=== PATIENT | female | born 1995 | race Caucasian/White ===

== ENCOUNTER 2017-08-11 20:57 | Emergency (ER) | payer SELFPAY ==
[~2017-08-11] VITALS: Ht 160 cm; Wt 54.0 kg
[~2017-08-11 20:57] MED LIST: AMOXICILLIN500 MG PO; BACTRIM DS1 TAB PO; NO; ZITHROMAX250 MG PO; [UNRECOGNIZED DRUG - OTHER] OP
[2017-08-11 21:46] LABS: URINE BILIRUBIN - DIPSTICK NEGATIVE (NEGATIVE); URINE BLOOD DIPSTICK NEGATIVE (NEGATIVE); URINE COLOR YELLOW; URINE GLUCOSE - DIPSTICK NEGATIVE (NEGATIVE); URINE KETONE NEGATIVE (NEGATIVE); URINE LEUK ESTERASE NEGATIVE (NEGATIVE); URINE PH 6.5 (4.5-8.0); URINE PROTEIN - DIPSTICK NEGATIVE (NEG-TRACE); URINE SPECIFIC GRAVITY 1.025; URINE UROBILINOGEN - DIPSTICK 0.2 E.U./dL (0.2)
[2017-08-11 21:49] LABS: URINE CLARITY CLEAR; URINE NITRITE - DIPSTICK POSITIVE (Negative)
[2017-08-11] MEDS ORDERED: GENTAMICIN15 ML/BTL OS (21:54)
[2017-08-11] MEDS ORDERED: (None)3.5 GM OS (21:54)
[2017-08-11 21:56] LABS: URINE BACTERIA RARE hpf; URINE SQUAMOUS EPITHELIAL CELL FEW EPI/hpf (0-FEW)
[2017-08-11 22:10] VITALS: BP 108/65
== END 2017-08-11 22:11 | disposition home or self-care (01) | DRG 125 ==
LOC: ED 20:57
PROVIDERS: Emergency Medicine
DX: H10.9 Unspecified conjunctivitis (principal)

== ENCOUNTER 2020-01-20 21:01 | Emergency (ER) | payer SELFPAY ==
[~2020-01-20] VITALS: Ht 160 cm; Wt 65.0 kg
[~2020-01-20 21:01] MED LIST changes: +(None)3.5 GM OS; +GENTAMICIN15 ML/BTL OS
[2020-01-20 21:37] LABS: URINE BILIRUBIN - DIPSTICK NEGATIVE (NEGATIVE); URINE BLOOD DIPSTICK TRACE-INTACT (NEGATIVE); URINE COLOR YELLOW; URINE GLUCOSE - DIPSTICK NEGATIVE (NEGATIVE); URINE KETONE NEGATIVE (NEGATIVE); URINE LEUK ESTERASE SMALL (NEGATIVE); URINE NITRITE - DIPSTICK NEGATIVE (Negative); URINE PH 5.5 (4.5-8.0); URINE PROTEIN - DIPSTICK NEGATIVE (NEG-TRACE); URINE SPECIFIC GRAVITY >=1.030; URINE UROBILINOGEN - DIPSTICK 0.2 E.U./dL (0.2)
[2020-01-20 21:39] LABS: URINE BACTERIA FEW hpf; URINE EPITHELIAL CELLS MANY EPI/hpf (0-FEW); URINE RBC 0-2 RBC/hpf (0-5)
[2020-01-20 21:42] LABS: HEMATOCRIT 36.2 % (37.0-47.0); IMMATURE GRANULOCYTES 0.3 % (0.0-5.0); MEAN CELL VOLUME 92.8 fL CALC (80.0-100.0); MEAN CORPUSCULAR HGB 30.8 pG CALC (26.0-32.0); MEAN CORPUSCULAR HGB CONC 33.1 g/dL CAL (32.0-36.0); NEUT# 9.72 thou/uL (2.00-7.15); RED BLOOD COUNT 3.9 mill/uL (4.20-5.60); RED CELL DISTRI WIDTH 11.5 % (11.5-15.5)
[2020-01-20 21:51] LABS: ALBUMIN 4.2 g/dL (3.2-5.0); ALKALINE PHOSPHATASE 57 u/l (38-126); AMYLASE 64 u/l (30-110); ANION GAP 11 (6-22 (CALC)); BILIRUBIN, TOTAL 0.4 mg/dL (0.0-1.4); BUN 6 mg/dL (7-17); BUN/CREATININE RATIO 8 (12-20 (CALC)); CARBON DIOXIDE 25 mmol/l (22-30); CHLORIDE 108 mmol/l (95-108); CREATININE 0.7 mg/dL (0.5-1.0); GFR > 60 ML/MIN (>=60 (CALC)); GFR FOR AFR.AMER. > 60 ML/MIN (>=60 (CALC)); POTASSIUM 3.5 mmol/l (3.5-5.1); SGOT/AST 25 u/l (14-36); SODIUM 142 mmol/l (137-146); TOTAL PROTEIN 7.1 g/dL (6.3-8.2)
[2020-01-20] MEDS ORDERED: BACTRIM DS1 TAB PO (22:03)
[2020-01-20 22:14] VITALS: BP 115/65
== END 2020-01-20 22:14 | disposition home or self-care (01) | DRG 690 ==
LOC: ED 21:01
PROVIDERS: Emergency Medicine
DX: N39.0 Urinary tract infection, site not specified (principal); F17.200 Nicotine dependence, unspecified, uncomplicated

== ENCOUNTER 2021-05-28 16:03 | Emergency (ER) | payer SELFPAY ==
[~2021-05-28] VITALS: Ht 160 cm; Wt 70.5 kg
[2021-05-28 16:24] VITALS: BP 121/72
[2021-05-28 17:16] LABS: HEMATOCRIT 39.8 % (37.0-47.0); HEMOGLOBIN 13.3 g/dl (12.0-16.0); IMMATURE GRANULOCYTES 0.1 % (0.0-5.0); MEAN CELL VOLUME 92.8 fL CALC (80.0-100.0); MEAN CORPUSCULAR HGB CONC 33.4 g/dL CAL (32.0-36.0); NEUT# 5.91 thou/uL (2.00-7.15); RED BLOOD COUNT 4.29 mill/uL (4.20-5.60); RED CELL DISTRI WIDTH 11.7 % (11.5-15.5)
[2021-05-28 17:23] LABS: URINE BILIRUBIN - DIPSTICK NEGATIVE (NEGATIVE); URINE BLOOD DIPSTICK TRACE-LYSED (NEGATIVE); URINE COLOR YELLOW; URINE GLUCOSE - DIPSTICK NEGATIVE (NEGATIVE); URINE KETONE NEGATIVE (NEGATIVE); URINE LEUK ESTERASE NEGATIVE (NEGATIVE); URINE PH 6.5 (4.5-8.0); URINE PROTEIN - DIPSTICK NEGATIVE (NEG-TRACE); URINE SPECIFIC GRAVITY 1.015; URINE UROBILINOGEN - DIPSTICK 0.2 E.U./dL (0.2)
[2021-05-28 17:24] LABS: URINE NITRITE - DIPSTICK NEGATIVE (Negative)
[2021-05-28 17:38] LABS: ALBUMIN 4.7 g/dL (3.2-5.0); ALKALINE PHOSPHATASE 68 u/l (38-126); ANION GAP 12 (6-22 (CALC)); BILIRUBIN, TOTAL 0.3 mg/dL (0.0-1.4); BUN 8 mg/dL (7-17); BUN/CREATININE RATIO 11 (12-20 (CALC)); CARBON DIOXIDE 28 mmol/l (22-30); CHLORIDE 102 mmol/l (95-108); CREATININE 0.7 mg/dL (0.5-1.0); GFR > 60 ML/MIN (>=60 (CALC)); GFR FOR AFR.AMER. > 60 ML/MIN (>=60 (CALC)); LIPASE 40 u/l (23-300); POTASSIUM 3.7 mmol/l (3.5-5.1); SGOT/AST 28 u/l (14-36); SODIUM 139 mmol/l (137-146)
[2021-05-28 18:33] VITALS: BP 115/77
[2021-05-28] MEDS ORDERED: PROTONIX40 M2 PO (18:55)
[2021-05-28] MEDS ORDERED: ZOFRAN4 MG/TAB PO (18:55)
[2021-05-28 19:36] VITALS: BP 115/77
== END 2021-05-28 19:38 | disposition home or self-care (01) | DRG 392 ==
LOC: ED 16:03
PROVIDERS: Family Medicine
DX: R10.13 Epigastric pain (principal); K21.9 Gastro-esophageal reflux disease without esophagitis; F17.290 Nicotine dependence, other tobacco product, uncomplicated

== ENCOUNTER 2021-05-30 08:06 | Emergency (ER) | payer SELFPAY ==
[~2021-05-30] VITALS: Ht 160 cm; Wt 70.5 kg
[2021-05-30] VITALS (7 sets, daily range): BP systolic 95–125; BP diastolic 55–89
[~2021-05-30 08:06] MED LIST changes: +PROTONIX40 M2 PO; +ZOFRAN4 MG/TAB PO
[2021-05-30 08:45] LABS: HEMATOCRIT 40.8 % (37.0-47.0); HEMOGLOBIN 13.4 g/dl (12.0-16.0); IMMATURE GRANULOCYTES 0.1 % (0.0-5.0); MEAN CELL VOLUME 94.7 fL CALC (80.0-100.0); MEAN CORPUSCULAR HGB 31.1 pG CALC (26.0-32.0); MEAN CORPUSCULAR HGB CONC 32.8 g/dL CAL (32.0-36.0); NEUT# 5.85 thou/uL (2.00-7.15); RED BLOOD COUNT 4.31 mill/uL (4.20-5.60); RED CELL DISTRI WIDTH 11.6 % (11.5-15.5)
[2021-05-30 09:13] LABS: ALBUMIN 4.3 g/dL (3.2-5.0); ALKALINE PHOSPHATASE 60 u/l (38-126); AMYLASE 59 u/l (30-110); ANION GAP 11 (6-22 (CALC)); BILIRUBIN, TOTAL 0.3 mg/dL (0.0-1.4); BUN 11 mg/dL (7-17); BUN/CREATININE RATIO 15 (12-20 (CALC)); CARBON DIOXIDE 25 mmol/l (22-30); CHLORIDE 106 mmol/l (95-108); CREATININE 0.7 mg/dL (0.5-1.0); GFR > 60 ML/MIN (>=60 (CALC)); GFR FOR AFR.AMER. > 60 ML/MIN (>=60 (CALC)); LIPASE 43 u/l (23-300); POTASSIUM 3.9 mmol/l (3.5-5.1); SGOT/AST 24 u/l (14-36); SODIUM 138 mmol/l (137-146); TOTAL PROTEIN 7.4 g/dL (6.3-8.2)
[2021-05-30] MEDS ORDERED: ZOFRAN4 MG/TAB PO (10:29)
[2021-05-30] MEDS ORDERED: PROTONIX40 M2 PO (10:29)
== END 2021-05-30 10:59 | disposition home or self-care (01) | DRG 392 ==
LOC: ED 08:06
DX: R10.13 Epigastric pain (principal); K21.9 Gastro-esophageal reflux disease without esophagitis; F17.290 Nicotine dependence, other tobacco product, uncomplicated; F12.90 Cannabis use, unspecified, uncomplicated
CPT/HCPCS: S0164

== ENCOUNTER 2022-01-23 02:56 | Observation (INO) | payer OTHER ==
[2022-01-23] VITALS (10 sets, daily range): BP systolic 97–124; BP diastolic 59–84
[~2022-01-23] VITALS: Ht 160 cm; Wt 68.0 kg
[2022-01-23 03:49] LABS: URINE BILIRUBIN - DIPSTICK NEGATIVE (NEGATIVE); URINE BLOOD DIPSTICK NEGATIVE (NEGATIVE); URINE COLOR YELLOW; URINE GLUCOSE - DIPSTICK NEGATIVE (NEGATIVE); URINE KETONE NEGATIVE (NEGATIVE); URINE LEUK ESTERASE NEGATIVE (NEGATIVE); URINE NITRITE - DIPSTICK NEGATIVE (Negative); URINE PH 7.5 (4.5-8.0); URINE PROTEIN - DIPSTICK NEGATIVE (NEG-TRACE); URINE UROBILINOGEN - DIPSTICK 0.2 E.U./dL (0.2)
[2022-01-23 04:08] LABS: HEMATOCRIT 35.5 % (37.0-47.0); HEMOGLOBIN 12.1 g/dl (12.0-16.0); IMMATURE GRANULOCYTES 0.4 % (0.0-5.0); MEAN CELL VOLUME 91.3 fL CALC (80.0-100.0); MEAN CORPUSCULAR HGB 31.1 pG CALC (26.0-32.0); MEAN CORPUSCULAR HGB CONC 34.1 g/dL CAL (32.0-36.0); NEUT# 13.5 thou/uL (2.00-7.15); RED BLOOD COUNT 3.89 mill/uL (4.20-5.60); RED CELL DISTRI WIDTH 11.5 % (11.5-15.5)
[2022-01-23 04:20] LABS: ALBUMIN 4.2 g/dL (3.2-5.0); ALKALINE PHOSPHATASE 70 u/l (38-126); ANION GAP 12 (6-22 (CALC)); BILIRUBIN, TOTAL 0.2 mg/dL (0.0-1.4); BUN 7 mg/dL (7-17); BUN/CREATININE RATIO 11 (12-20 (CALC)); CARBON DIOXIDE 25 mmol/l (22-30); CHLORIDE 107 mmol/l (95-108); CREATININE 0.7 mg/dL (0.5-1.0); GFR FOR AFR.AMER. > 60 ML/MIN (>=60 (CALC)); GFR OTHER RACES > 60 ML/MIN (>=60 (CALC)); LIPASE 28 u/l (23-300); POTASSIUM 3.7 mmol/l (3.5-5.1); SGOT/AST 30 u/l (14-36); SODIUM 140 mmol/l (137-146); TOTAL PROTEIN 6.8 g/dL (6.3-8.2)
--- NOTE | 2022-01-23 05:57 | NUR ---
PT UPDATED ON PLAN OF CARE, PT VERBALIZED UNDERSTANDING. PT IN NAD, A&OX4, VSS.
--- NOTE | 2022-01-23 06:24 | NUR ---
REPORT GIVEN TO JOSE RN, PT TRANSFERRED WITH FAMILY MEMBER AT BEDSIDE. PT IN NAD, A&OX4, VSS. PT UPDATED ON PLAN OF CARE.
--- NOTE | 2022-01-23 06:30 | NUR ---
PATIENT ADMITTED FROM ER VIA WHEELCHAIR WITH ER STAFF IN ATTENDANCE. PATIENT IS AMBULATORY TO THE BED. FAMILY MENBER AT BEDSIDE. ALERT AND ORIENTEDX3-ADMITTED FOR ACUTE APPY. NPO AT THIS TIME. IV SITE TO LAC-SITE IS HEALTHY WITH GOOD BLOOD RETURN. LEVAQUIN INFUSING ORDERED. ORIENTED TO ROOM AND SURROUNDINGS. INSTRUCTED ON USE OF CALL LIGHT SYSTEM AND TV REMOTE. SAFETY PRECAUTIONS REINFORCED. CALL LIGHT IN REACH. WILL CONT TO MONITOR.
--- NOTE | 2022-01-23 07:29 | NUR ---
PT RESTING IN LOW FOWLERS POSITION. PT A/OX3 ASSESSMENT COMPLETEDAND VS. PT HEART RHYHTM NORMAL. RESPIRATIONS UNLABORED. DENIES PAIN AT THE MOMENT ADVISED PT HAS PAIN MEDICATIONS IF NEEDED. ADMISSION TO BE COMPLETED. ALL SAFETY PRECAUTIONS IN PLACE CALL LIGHT IN REACH WITH SAFETY PRECAUTIONS IN PLACE.
[2022-01-23] MEDS ORDERED: PERCOCET 5/321 COMBO PO (11:32)
--- NOTE | 2022-01-23 12:00 | NUR ---
pt resting in high fowlers position. heart rhyhtm normal respirations unlabored pt dneies pain 3 port noted with dermabond. cdi. pt denies additional needs tolerated food well. all safety precautions in place.
--- NOTE | 2022-01-23 13:59 | NUR ---
Discharge instructions given. Patient verbalizes understanding of same. Discharged in stable condition via Wheelchair to Home with VOLUNTEER. All belongings sent with pt. IV REMOVED
[2022-01-27] MEDS ORDERED: TORADOL PO (09:08)
[2022-01-27] MEDS ORDERED: PERCOCET 5/321 COMBO PO (09:08)
== END 2022-01-23 14:00 | disposition home or self-care (01) ==
LOC: ED 02:56 → ED-I 03:13 → ED 05:48 → MS2 05:49
PROVIDERS: Family Medicine; ADMIT Surgery; ATTEND Surgery
DX: K35.30 Acute appendicitis with localized peritonitis, without perforation or gangrene (principal); Z20.822 Contact with and (suspected) exposure to COVID-19
CPT/HCPCS: G0378; J0131; Q9967; S0164